=== PATIENT | male | born 1985 | race African-American/Black ===

== ENCOUNTER 2017-02-14 16:06 | Emergency (ER) | payer MEDICAID ==
[~2017-02-14] VITALS: Ht 188 cm; Wt 79.4 kg
[2017-02-14 19:18] VITALS: BP 145/93
[2017-02-14] MEDS ORDERED: IBUPROFEN 800 MG TAB PO ONE (20:15)
== END 2017-02-14 20:28 | disposition home or self-care (01) ==
LOC: ER 16:16
DX: S60.031A Contusion of right middle finger without damage to nail, initial encounter (principal); W23.0XXA Caught, crushed, jammed, or pinched between moving objects, initial encounter; Y93.89 Activity, other specified; Y92.89 Other specified places as the place of occurrence of the external cause; Y99.8 Other external cause status
CPT/HCPCS: 29130; 73140